=== PATIENT | female | born 1965 | race Caucasian/White ===

== ENCOUNTER 2016-06-12 14:17 | Emergency (ER) | payer OTHER ==
[~2016-06-12] VITALS: Ht 160 cm; Wt 60.0 kg
[2016-06-12 14:23] VITALS: BP 143/90; PULSE 124; RESP 18; TEMP 98.2; O2SAT 97
[2016-06-12] MEDS ORDERED: SODIUM CHLOR 0.9% 1000 ML INJ 1,000 ML IV ONE (14:25)
[2016-06-12] MEDS ORDERED: diphenhydrAMINE HCL 50 MG/ML VIAL IV PUSH ONE (14:30)
[2016-06-12] MEDS ORDERED: SODIUM CHLORIDE 0.9% FLUSH 5 ML FLUSH IVF PRN (14:30)
[2016-06-12] MEDS ORDERED: PROCHLORPERAZINE INJ 10 MG/2 ML VIAL IVS ONE (14:30)
[2016-06-12] MEDS ORDERED: THIAMINE HCL 200 MG/2 ML VIAL IM ONE (14:30)
[2016-06-12 14:33] VITALS: RESP 18; O2SAT 99
[2016-06-12 14:57] LABS: AUTOMATED NEUTROPHIL # 4.9 TH/MM3 (1.8-7.7); BASOPHIL # 0.1 TH/MM3 (0-0.2); BASOPHIL % 0.9 % (0.0-2.0); EOSINOPHIL % 0.4 % (0.0-4.0); HEMATOCRIT 43.3 % (35.0-46.0); HEMO FLAGS DIFF FINAL; LYMPH % 30.3 % (9.0-44.0); LYMPHOCYTE # 2.5 TH/MM3 (1.0-4.8); MEAN CELL VOLUME 88.5 FL (80.0-100.0); MEAN CORPUSCULAR HEMOGLOBIN 30.3 PG (27.0-34.0); MEAN CORPUSCULAR HGB CONC 34.2 % (32.0-36.0); MONO % 9.3 % (0.0-8.0); NEUT % 59.1 % (16.0-70.0); PLATELET COUNT 427 TH/MM3 (150-450); RED BLOOD COUNT 4.89 MIL/MM3 (4.00-5.30); RED CELL DISTRIBUTION WIDTH 14.3 % (11.6-17.2); WHITE BLOOD COUNT 8.3 TH/MM3 (4.0-11.0)
[2016-06-12 15:07] LABS: AMPHETAMINE, URINE NEG (NEG); BARBITURATES, URINE NEG (NEG); COCAINE, URINE NEG (NEG)
[2016-06-12 15:08] LABS: BACTERIA, URINE RARE /hpf; BLOOD, URINE SMALL (NEG); COMMENT (UR) CULTURE INDICATED; CULTURE IF INDICATED CULTURE INDICATED; GLUCOSE,URINE NEG (NEG); HYALINE CAST, URINE 5 /lpf (RARE); KETONE, URINE NEG (NEG); MUCUS URINE FEW /lpf (OCC); NITRITE,URINE NEG (NEG); PH, URINE 5.5 (5.0-8.5); SQUAMOUS EPITHELIAL CELL URINE 12 /hpf (0-5); URINE COLOR YELLOW (YELLW/STRAW)
[2016-06-12 15:15] LABS: ANION GAP 13 MEQ/L (5-15); AST (GOT) 52 U/L (15-37); BLOOD UREA NITROGEN 12 MG/DL (7-18); CHLORIDE 106 MEQ/L (98-107); GLOMERULAR FILTRATION RATE 64 ML/MIN (>89); SODIUM (NA) 141 MEQ/L (136-145)
[2016-06-12 15:18] LABS: ACETAMINOPHEN LESS THAN 2.0 MCG/ML (10.0-30.0); ALKALINE PHOSPHATASE 65 U/L (45-117); ALT (GPT) 75 U/L (10-53); TOTAL BILIRUBIN ADULT 0.4 MG/DL (0.2-1.0)
[2016-06-12 16:29] VITALS: BP 148/78; PULSE 121; RESP 18; O2SAT 96
[2016-06-12] MEDS ORDERED: CEPH-460 PO (17:45)
--- NOTE | 2016-06-12 17:49 | PD ---
HPI Chief Complaint: Abdominal Pain Travel History International Travel<30 days: No Contact w/Intl Traveler<30days: No Traveled to known affect area: No [facility] Past Medical History Anxiety: Yes ?: Not Social History Alcohol Use: Yes (hx of abuse) Tobacco Use: No Substance Use: No Allergies-Medications (Allergen,Severity, Reaction): Coded Allergies: No Known Allergies (Unverified , 06/12/16) Reported Meds & Prescriptions Reported Meds & Active Scripts Active Keflex (Cephalexin) 500 Mg Cap 500 Mg PO Q8H Data Data Last Documented VS Orders Electrocardiogram (06/12/16 14:25) Complete Blood Count With Diff (06/12/16 14:25) Comprehensive Metabolic Panel (06/12/16 14:25) Urinalysis - C+S If Indicated (06/12/16 14:25) Iv Access Insert/Monitor (06/12/16 14:25) Ecg Monitoring (06/12/16 14:25) Oximetry (06/12/16 14:25) Sodium Chloride 0.9% Flush (Ns Flush) (06/12/16 14:30) Sodium Chlor 0.9% 1000 Ml Inj (Ns 1000 M (06/12/16 14:25) Drug Screen, Random Urine (06/12/16 14:25) Alcohol (Ethanol) (06/12/16 14:25) Salicylates (Aspirin) (06/12/16 14:25) Tylenol (Acetaminophen) (06/12/16 14:25) Thiamine Inj (Thiamine Inj) (06/12/16 14:30) Prochlorperazine Inj (Compazine Inj) (06/12/16 14:30) Diphenhydramine Inj (Benadryl Inj) (06/12/16 14:30) Urine Culture (06/12/16 14:35) Labs MDM Diagnosis Primary Impression: Urinary tract infection Qualified Code: N30.00 - Acute cystitis without hematuria Referrals: [facility] Patient Instructions: General Instructions Departure Forms: Tests/Procedures Med/Other Pt SpecificInfo: Prescription(s) given Scripts Cephalexin (Keflex)500 Mg [id number] Mg PO Q8H #21 CAP Prov:Shamar Aburto MD 06/12/16 Disposition: 01 DISCHARGE HOME Condition: Stable EdwinSeanw KimberlyJason GUILLAUME Jun 12, 2016 17:49 Hematocrit 43.3 % Mean Corpuscular Volume 88.5 FL Mean Corpuscular Hemoglobin 30.3 PG Mean Corpuscular Hemoglobin 34.2 % Concent Red Cell Distribution Width 14.3 % Platelet Count 427 TH/MM3 Mean Platelet Volume 6.4 FL Neutrophils (%) (Auto) 59.1 % Lymphocytes (%) (Auto) 30.3 % Monocytes (%) (Auto) 9.3 % Eosinophils (%) (Auto) 0.4 % Basophils (%) (Auto) 0.9 % Neutrophils # (Auto) 4.9 TH/MM3 Lymphocytes # (Auto) 2.5 TH/MM3 Monocytes # (Auto) 0.8 TH/MM3 Eosinophils # (Auto) 0.0 TH/MM3 Basophils # (Auto) 0.1 TH/MM3 CBC Comment DIFF FINAL Differential Comment Urine Color YELLOW Urine Turbidity HAZY Urine pH 5.5 Urine Specific [place] 1.027 Urine Protein 30 mg/dL Urine Glucose (UA) NEG mg/dL Urine Ketones NEG mg/dL Urine Occult Blood SMALL Urine Nitrite NEG Urine Bilirubin NEG Urine Urobilinogen LESS THAN 2.0 MG/DL Urine Leukocyte Esterase LARGE Urine RBC 7 /hpf Urine WBC 34 /hpf Urine Squamous Epithelial 12 /hpf Cells Urine Bacteria RARE /hpf Urine Hyaline Casts 5 /lpf Urine Mucus FEW /lpf Microscopic Urinalysis Comment CULTURE INDICATED Sodium Level 141 MEQ/L Potassium Level 4.0 MEQ/L Chloride Level 106 MEQ/L Carbon Dioxide Level 22.0 MEQ/L Anion Gap 13 MEQ/L Blood Urea Nitrogen 12 MG/DL Creatinine 0.92 MG/DL Estimat Glomerular Filtration 64 ML/MIN Rate Random Glucose 105 MG/DL Calcium Level 7.6 MG/DL Total Bilirubin 0.4 MG/DL Aspartate Amino Transf 52 U/L (AST/SGOT) Alanine Aminotransferase 75 U/L (ALT/SGPT) Alkaline Phosphatase 65 U/L Total Protein 6.9 GM/DL Albumin 3.4 GM/DL Salicylates Level LESS THAN 1.7 MG/DL Urine Opiates Screen NEG Acetaminophen Level LESS THAN 2.0 MCG/ML Urine Barbiturates Screen NEG Urine Amphetamines Screen NEG Urine Benzodiazepines Screen NEG Urine Cocaine Screen NEG Urine Cannabinoids Screen NEG Ethyl Alcohol Level 206 MG/DL MDM Diagnosis Primary Impression: Urinary tract infection Qualified Code: N30.00 - Acute cystitis without hematuria Referrals: [facility] Patient Instructions: General Instructions Departure Forms: Tests/Procedures Med/Other Pt SpecificInfo: Prescription(s) given Scripts Cephalexin (Keflex)500 Mg [id number] Mg PO Q8H #21 CAP Prov:Shamar Aburto MD 06/12/16 Disposition: 01 DISCHARGE HOME Condition: Stable Rob Pineda Jun 12, 2016 17:49
--- NOTE | 2016-06-12 18:04 | EKG ---
Date Performed: 06/12/2016 Time Performed: 14:52:56 PTAGE: 50 years EKG: SINUS TACHYCARDIA ABNORMAL RHYTHM ECG NO PREVIOUS TRACING DOCTOR: Rolando Rand Interpretating Date/Time 06/12/2016 18:02:46
--- NOTE | 2016-06-12 18:29 | PD ---
HPI Chief Complaint: Abdominal Pain Time Seen by Provider: 14:25 Travel History International Travel<30 days: No Contact w/Intl Traveler<30days: No Traveled to known affect area: No History of Present Illness HPI Patient 50-year-old female presents emergency department by E back stating that she drank too much. Patient states she's also been having some mild right upper quadrant pain to nursing which she does not endorse to me. Patient states that she's fine now she does know she had too much to drink. Denies any injuries, denies any headache neck pain abdominal pain nausea vomiting diarrhea per EMS there is no reported history of a fall or any other trauma. Her arrived shortly after the patient and states that she just had too much drink. Apparently she's also had withdrawal symptoms in the past before [place] is been gradually begin somewhat altered in her mental status. Patient adamantly denies driving while intoxicated today. My first encounter with the patient she is somewhat tearful. She appears in no apparent distress. PFSH Past Medical History Anxiety: Yes ?: Not Social History Alcohol Use: Yes (hx of abuse) Tobacco Use: No Substance Use: No Allergies-Medications (Allergen,Severity, Reaction): Coded Allergies: No Known Allergies (Unverified , 06/12/16) Reported Meds & Prescriptions Reported Meds & Active Scripts Active Keflex (Cephalexin) 500 Mg Cap 500 Mg PO Q8H Review of Systems Except as stated in HPI: all other systems reviewed are Neg Physical Exam Narrative GENERAL: Well-developed well-nourished no apparent distress. Smells mildly of alcohol. No tremors. SKIN: Warm and dry. HEAD: Atraumatic. Normocephalic. EYES: Pupils equal and round. No scleral icterus. No injection or drainage. ENT: No nasal bleeding or discharge. Mucous membranes pink and moist. NECK: Trachea midline. No JVD. CARDIOVASCULAR: Regular rate and rhythm. No murmur appreciated. RESPIRATORY: No accessory muscle use. Clear to auscultation. Breath sounds equal bilaterally. GASTROINTESTINAL: Abdomen soft, non-tender, nondistended. Hepatic and splenic margins not palpable. MUSCULOSKELETAL: No obvious deformities. No clubbing. No cyanosis. No edema. NEUROLOGICAL: Awake and alert. No obvious cranial nerve deficits. Motor grossly within normal limits. Normal speech. PSYCHIATRIC: Appropriate mood and affect; insight and judgment normal. Data Data Last Documented VS Orders Electrocardiogram (06/12/16 14:25) Complete Blood Count With Diff (06/12/16 14:25) Comprehensive Metabolic Panel (06/12/16:) Urinalysis - C+S If Indicated (06/12/16 14:25) Iv Access Insert/Monitor (06/12/16 14:25) Ecg Monitoring (06/12/16:25) Oximetry (06/12/16 14:25) Sodium Chloride 0.9% Flush (Ns Flush) (06/12/16 14:30) Sodium Chlor 0.9% 1000 Ml Inj (Ns 1000 M (06/12/16 14:25) Drug Screen, Random Urine (06/12/16:) Alcohol (Ethanol) (06/12/16 14:25) Salicylates (Aspirin) (06/12/16 14:25) Tylenol (Acetaminophen) (06/12/16 14:25) Thiamine Inj (Thiamine Inj) (06/12/16 14:30) Prochlorperazine Inj (Compazine Inj) (06/12/16 14:30) Diphenhydramine Inj (Benadryl Inj) (06/12/16 14:30) Urine Culture (06/12/16 14:35) Labs MDM Medical Decision Making Medical Screen Exam Complete: Yes Emergency Medical Condition: Yes Differential Diagnosis Alcohol intoxication, electrolyte abnormality, mild withdrawals possible but unlikely. Narrative Course Patient roomed in the emergency department. She appears well and in no apparent distress. Patient has alcohol level of 206. Tylenol UDS and salicylates negative. Patient has AST and ALT elevated in a pattern that suggests hepatocellular disease. Bilirubin and protein levels are normal. This is discussed the patient recommended follow-up with her primary care physician. At this time patient appears well and in no obvious distress. Her is here is willing to take her home and he is clinically sober. Patient was discharged to his care. There is no evidence of acute alcohol withdrawals, the patient is not altered she is not febrile and has no tremors. Diagnosis Primary Impression: Urinary tract infection Qualified Code: N30.00 - Acute cystitis without hematuria Additional Impression: Alcohol intoxication Referrals: [facility] Patient Instructions: General Instructions Departure Forms: Tests/Procedures Scripts Cephalexin (Keflex)500 Mg [id number] Mg PO Q8H #21 CAP Prov:Shamar Aburto MD 06/12/16 Disposition: DISCHARGE HOME Condition: Stable Shamar Aburto MD Jun 12, 2016 18:29 Urine Nitrite NEG Urine Bilirubin NEG Urine Urobilinogen LESS THAN 2.0 MG/DL Urine Leukocyte Esterase LARGE Urine RBC 7 /hpf Urine WBC 34 /hpf Urine Squamous Epithelial 12 /hpf Cells Urine Bacteria RARE /hpf Urine Hyaline Casts 5 /lpf Urine Mucus FEW /lpf Microscopic Urinalysis Comment CULTURE INDICATED Sodium Level 141 MEQ/L Potassium Level 4.0 MEQ/L Chloride Level 106 MEQ/L Carbon Dioxide Level 22.0 MEQ/L Anion Gap 13 MEQ/L Blood Urea Nitrogen 12 MG/DL Creatinine 0.92 MG/DL Estimat Glomerular Filtration 64 ML/MIN Rate Random Glucose 105 MG/DL Calcium Level 7.6 MG/DL Total Bilirubin 0.4 MG/DL Aspartate Amino Transf 52 U/L (AST/SGOT) Alanine Aminotransferase 75 U/L (ALT/SGPT) Alkaline Phosphatase 65 U/L Total Protein 6.9 GM/DL Albumin 3.4 GM/DL Salicylates Level LESS THAN 1.7 MG/DL Urine Opiates Screen NEG Acetaminophen Level LESS THAN 2.0 MCG/ML Urine Barbiturates Screen NEG Urine Amphetamines Screen NEG Urine Benzodiazepines Screen NEG Urine Cocaine Screen NEG Urine Cannabinoids Screen NEG Ethyl Alcohol Level 206 MG/DL MDM Diagnosis Primary Impression: Urinary tract infection Referrals: [facility] Patient Instructions: General Instructions Departure Forms: Tests/Procedures Scripts Cephalexin (Keflex)500 Mg [id number] Mg PO Q8H #21 CAP Prov:Shamar Aburto MD 06/12/16 Disposition: DISCHARGE HOME Condition: Stable Shamar Aburto MD Jun 12, 2016 18:29
== END 2016-06-12 17:47 | disposition home or self-care (01) ==
LOC: NEPC 14:17
DX: N39.0 Urinary tract infection, site not specified (principal); R00.0 Tachycardia, unspecified; F10.129 Alcohol abuse with intoxication, unspecified
CPT/HCPCS: 80053; 80307; 81001; 85025; 87086; 93005; 96372; 96374; 96375; 99284; J0780; J1200; J3411; J7030